=== PATIENT | male | born 1985 | race Two or more races ===

== ENCOUNTER 2017-01-12 07:03 | Emergency (ER) | payer SELFPAY ==
[~2017-01-12] VITALS: Ht 177.8 cm; Wt 137.0 kg
--- NOTE | 2017-01-12 07:10 | NUR ---
31 YO MALE BB RA. PER EMS, PT WAS FOUND BY BYSTANDER, ADMITS TO ALCOHOL DRINKING. PT DS TO ER BED, SKIN WARM AND DRY, RR EVEN AND UNLABORED. PT PLACED ON PROGRAM PARAPROFESSIONAL. AWAITING ORDERS FROM PROVIDER, WILL COTNINUE TO MONITOR
--- NOTE | 2017-01-12 07:11 | NUR ---
MD CONNELL AT BED SIDE FOR EVAL
[2017-01-12 07:21] LABS: BASOPHILS # (AUTO) 0.1 /CMM (0.0-0.2); BASOPHILS % (AUTO) 0.7 % (0.0-2.0); EOSINOPHILS # (AUTO) 0.1 /CMM (0.0-0.7); EOSINOPHILS % (AUTO) 1.5 % (0.0-6.0); HEMATOCRIT 44 % (39-51); HEMOGLOBIN 14.7 g/dL (13.5-17.5); LYMPHOCYTES # (AUTO) 2.1 /CMM (0.8-4.8); MEAN CORPUSCULAR HEMOGLOBIN 29 PG (26.0-33.0); MEAN CORPUSCULAR HGB CONC 34 g/dl (31.0-36.0); MEAN CORPUSCULAR VOLUME 87 fL (80-96); MONOCYTES # (AUTO) 0.3 /CMM (0.1-1.30); MONOCYTES % (AUTO) 3.8 % (2.0-12.0); NEUTROPHILS # (AUTO) 6.2 /CMM (1.8-8.9); PLATELET COUNT (AUTO) 254 /CMM (150-450); RDW COEFFICIENT OF VARIATION 14.1 (11.5-15.0); RED BLOOD CELL COUNT(AUTO) 5.04 MIL/uL (4.5-6.0); WHITE BLOOD COUNT (AUTO) 8.8 K/uL (4.3-11.0)
--- NOTE | 2017-01-12 07:30 | NUR ---
PATIENT TAKEN TO CT VIA STRETCHER.
[2017-01-12 07:42] LABS: ALBUMIN 3.9 g/dL (3.4-5.0); BILIRUBIN,TOTAL 0.2 mg/dL (0.2-1.0); CALCIUM, SERUM 8.3 mg/dL (8.5-10.1); CREATININE 1.3 mg/dL (0.6-1.3); POTASSIUM 3.7 mmol/L (3.5-5.1); TOTAL PROTEIN, SERUM 7.5 g/dL (6.4-8.2)
[2017-01-12 07:44] LABS: SALICYLATE 1.6 mg/dL (2.8-20.0)
--- NOTE | 2017-01-12 07:44 | NUR ---
PATIENT RETURNED FROM CT SCAN.
--- NOTE | 2017-01-12 10:02 | NUR ---
TRANSPORTED FOR CT.
[2017-01-12 10:31] VITALS: BP 120/68
--- NOTE | 2017-01-12 10:32 | NUR ---
PT A&OX3, AMBULATORY WITH STEADY GAIT. PT REEVALUATED BY DR. CONNELL AND REQUESTING TO GO HOME AT THIS TIME.
--- NOTE | 2017-01-12 10:32 | NUR ---
Patient discharged to home in stable condition. Written and verbal after care instructions given. Patient verbalizes understanding of instruction.
== END 2017-01-12 10:32 | disposition home or self-care (01) ==
LOC: ER 07:05
DX: F10.129 Alcohol abuse with intoxication, unspecified (principal); R41.82 Altered mental status, unspecified
CPT/HCPCS: 36415; 70450; 80048; 80076; 80329; 85025; 99285; A4606; G0480 ×2; Z7610